=== PATIENT | female | born 1955 | race Caucasian/White ===

== ENCOUNTER 2016-04-20 16:58 | Emergency (ER) | payer OTHER ==
[~2016-04-20 16:58] MED LIST: NORCO 7.5-3251 EACH PO
[2016-04-20 18:46] LABS: HEMOGLOBIN 12.5 gm/dl (12.3-15.3); RED BLOOD COUNT 4.36 M/UL (4.00-5.10); WHITE BLOOD COUNT 4.8 K/UL (4.5-11.0)
[2016-04-20 19:05] LABS: BUN/CREATININE RATIO 14 (0-10)
== END 2016-04-20 22:14 | disposition home or self-care (01) ==
LOC: ER1 16:58
PROVIDERS: Physician Assistant
DX: N39.0 Urinary tract infection, site not specified (principal); R11.2 Nausea with vomiting, unspecified; R10.13 Epigastric pain; R42 Dizziness and giddiness; I10 Essential (primary) hypertension; Z90.49 Acquired absence of other specified parts of digestive tract; Z87.891 Personal history of nicotine dependence; Z79.899 Other long term (current) drug therapy
CPT/HCPCS: 36415; 70450; 71010; 80053; 81001; 82550; 82553; 83605; 83874; 84484; 85025; 87086; 93005; 96374; 96375; 99284; J0696; J2405; J2550; J7030; J7050; Q9962

== ENCOUNTER 2020-06-12 22:45 | Emergency (ER) | payer OTHER ==
[2020-06-13 02:16] LABS: HEMOGLOBIN 11.8 gm/dl (12.3-15.3); RED BLOOD COUNT 4.18 M/UL (4.00-5.10); WHITE BLOOD COUNT 8.5 K/UL (4.5-11.0)
[2020-06-13 02:37] LABS: BUN/CREATININE RATIO 11 (0-10)
== END 2020-06-13 03:50 | disposition home or self-care (01) ==
LOC: ER1 22:45
PROVIDERS: Family Medicine
DX: R06.00 Dyspnea, unspecified (principal); Z20.822 Contact with and (suspected) exposure to COVID-19; Z90.49 Acquired absence of other specified parts of digestive tract; Z79.899 Other long term (current) drug therapy
CPT/HCPCS: 0240U; 71045; 80053; 82550; 82553; 83605; 83874; 83880; 84484; 85025; 93005; 99285

== ENCOUNTER 2020-07-25 23:36 | Emergency (ER) | payer OTHER | END 2020-07-25 23:40 | disposition left against medical advice (07) | LOC: ER1 23:36 | DX: Z53.21 Procedure and treatment not carried out due to patient leaving prior to being seen by health care provider (principal) ==

== ENCOUNTER 2020-07-29 01:53 | Emergency (ER) | payer OTHER ==
[2020-07-29 05:02] LABS: HEMOGLOBIN 11.8 gm/dl (12.3-15.3); RED BLOOD COUNT 4.04 M/UL (4.00-5.10); WHITE BLOOD COUNT 7.4 K/UL (4.5-11.0)
[2020-07-29 05:18] LABS: BUN/CREATININE RATIO 12 (0-10)
== END 2020-07-29 06:43 | disposition home or self-care (01) ==
LOC: ER1 01:53
PROVIDERS: Family Medicine
DX: R00.2 Palpitations (principal)
CPT/HCPCS: 80053; 82550; 82553; 83874; 84484; 85025; 93005; 93242; 99285

== ENCOUNTER → 2020-08-13 | Outpatient (CLI) | payer OTHER | LOC: HEART 5 15:27 | DX: R00.2 Palpitations (principal) ==

== ENCOUNTER → 2020-10-16 | Outpatient (CLI) | payer OTHER | LOC: HEART 5 08:00 | DX: R06.02 Shortness of breath (principal); I20.8 Other forms of angina pectoris; I07.1 Rheumatic tricuspid insufficiency; I27.20 Pulmonary hypertension, unspecified | CPT/HCPCS: 93306; J2785 ==

== ENCOUNTER → 2020-11-01 | Outpatient (CLI) | payer OTHER | LOC: EXRD 08:35 | DX: R06.02 Shortness of breath (principal); I20.8 Other forms of angina pectoris | CPT/HCPCS: 78452; A9502; J2785 ==

== ENCOUNTER 2021-04-01 06:45 | Emergency (ER) | payer MEDICARE, OTHER | END 2021-04-01 07:35 | disposition left against medical advice (07) | LOC: ER1 06:45 | DX: R06.02 Shortness of breath (principal); I10 Essential (primary) hypertension | CPT/HCPCS: 93005; 99281 ==